=== PATIENT | female | born 2005 | race Caucasian/White ===

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

== ENCOUNTER 2023-01-05 17:40 | Outpatient (CLI) | payer OTHER, SELFPAY ==
[2023-01-05 18:30] LABS: Appearance Urine UA CLOUDY; Bilirubin Urine UA NEGATIVE (NEGATIVE); Color Urine UA YELLOW; Glucose Urine UA NEGATIVE (Negative); Ketones Urine UA NEGATIVE (NEGATIVE); Leukocyte Esterase Urine UA 2+ (NEGATIVE); Nitrite Urine UA NEGATIVE (Negative); Occult Blood Urine UA NEGATIVE (Negative); Protein Urine UA NEGATIVE (Negative); Urobilinogen Urine UA 0.2 E.U./dL (0.2)
[2023-01-05 18:41] LABS: Amorphous Sediment Urine 2+; Bacteria Urine Moderate (10-30); Culture Indicated Urine Specimen Cultured; RBC Urine 0-1/HPF (0-5/HPF); Squamous Epithelial Cell Urine 1-5 /HPF (0-5/HPF); WBC Urine 1-5/HPF (0-5/HPF)
--- NOTE | 2023-01-05 19:09 | P.TNLD_ITS ---
Visit Information Visit Information Date of evaluation: 01/05/23 Primary OB Provider: Hanh Peters On-call OB Provider: Sandra Lipscomb Comments/Additional reasons for admission: 17yo at 28w1d here due to abdominal cramping. Pt reports consistent cramping for several hours. It has not been getting any stronger. No vaginal bleeding, LOF. She is feeling her baby move regularly. [facility] Medical History Acne ADHD Anxiety Depression Eczema Impacted cerumen Polyp of ear Surgical History Anesthesia [place] teeth extracted (~06/2020) Family History Father Acute leukemia Grandfather Heart attack Diabetes mellitus Coagulopathy Grandfather Diabetes mellitus Heart disease Family/Other Diabetes mellitus Family/Other Autism Sister ADHD Social History marital status: unmarried,living together number of children: 0 household members: significant other lives independently: Yes caregiver/support person: No housing: apartment pets and animals: Yes (1 dog, 2 cats. S/O managing litter boxes) education level: high school occupational status: unemployed current occupational exposures/hazards: No special tammy needs: No travel history: over 6 months ago seatbelt use: always water heater temp set < 120 deg: Yes working smoke detector in home: Yes fire extinguisher in home: Yes carbon monox detector in home: Yes firearms in home: No do you feel safe at home: Yes Smoking Status: Never smoker second hand exposure: No alcohol intake: never substance use type: does not use during the past year weight has: remained stable well-balanced diet: rarely or never daily servings fruits/ve-1 caffeine: Yes (1 cup coffee/day) Type(s) of exercise: walking frequency: daily Objective Labs Labs: Laboratory Results - last 24 hr 01/05/23 18:00 Urine Color Yellow Urine Appearance Cloudy Urine pH 7.0 Ur Specific [place] 1.020 Urine Protein Negative Urine Glucose (UA) Negative Urine Ketones Negative Urine Occult Blood Negative Urine Nitrate Negative Urine Bilirubin Negative Urine Urobilinogen 0.2 Ur Leukocyte Esterase 2+ H Urine RBC 0-1/hpf Urine WBC 1-5/hpf Ur Squamous Epith Cells 1-5 /hpf Amorphous Sediment 2+ Urine Bacteria Moderate (10-30) H Ur Culture Indicated? Specimen cultured Evaluation Evaluation Baseline heart rate: 150 Variability: Moderate (11-25) monitor accelerations: Present Monitor Decelerations: Absent Category of Tracing: Reactive Diagnosis, Plan/Disposition Final Diagnosis (1) Abdominal cramping: Status: Acute Plan/Disposition Plan: 17yo at 28w1d here due to abdominal cramping. No contractions on toco, very low suspicion for labor. U/A does have positive LE and bacteria, concerning for UTI. Will start on antibiotics. Stable for d/c home. OB Disposition: home
== END 2023-01-05 19:10 | disposition home or self-care (01) ==
LOC: LABOR 19:08 → OB 01-11 12:19
PROVIDERS: PCP Family Medicine; Referring Provider Family Medicine; Visit Provider Family Medicine
DX: O26.893 Other specified pregnancy related conditions, third trimester (principal); R10.9 Unspecified abdominal pain; Z3A.28 28 weeks gestation of pregnancy
CPT/HCPCS: 59025; 81001; 87086; G0378; G0379

== ENCOUNTER → 2023-01-16 09:35 | Outpatient (CLI) | payer OTHER, SELFPAY ==
[2023-01-16 12:16] LABS: Glucose Fasting Gestational 99 mg/dL (76-95)
[2023-01-16 13:00] LABS: Glucose 2 Hour Gest 170 mg/dL (76-155)
[2023-01-16 14:12] LABS: Glucose 1 Hour Gest 168 mg/dL (76-180)
[2023-01-16 14:46] LABS: Glucose Tol Interp,Gestational INTERPRETATION
[2023-01-16 15:00] LABS: Glucose 3 Hour Gest 142 mg/dL (76-140)
== END ==
PROVIDERS: PCP Family Medicine; Referring Provider Obstetrics & Gynecology; Visit Provider Obstetrics & Gynecology
DX: Z34.81 Encounter for supervision of other normal pregnancy, first trimester (principal); R73.01 Impaired fasting glucose
CPT/HCPCS: 36415; 82951; 82952

== ENCOUNTER 2023-01-25 15:42 | Observation (INO) | payer OTHER, SELFPAY ==
--- NOTE | 2023-01-25 16:26 | DI.US.S_ITS ---
PROCEDURE: US ABDOMEN LIMITED INDICATIONS: RIGHT LOWER QUADRANT PAIN - RULE OUT APPENDICITIS TECHNIQUE: Real-time focused scanning was performed of the abdomen with attention to the appendix, with image documentation. COMPARISON: [facility], US, US OB >= 14 WEEKS FETUS, 01/16/2023, 14:37. FINDINGS: Appendix visualization: Not seen Appendix measurements: Not applicable Associated findings: No secondary signs of appendicitis can be seen. IMPRESSION: No appendix (either normal or abnormal) is identified on this study. No secondary signs of appendicitis can be seen on these images. Dictated by: Gerald Hsieh M.D. on 01/25/2023 at 16:10 Approved by: Gerald Hsieh M.D. on 01/25/2023 at 16:11
[2023-01-25 16:43] LABS: Add Manual Diff / Slide Review NO; Basophils Absolute Auto 100 /uL (0-100); Basophils Percent Auto 0.7 % (0-2); Eosinophils Absolute Auto 100 /uL (0-450); Eosinophils Percent Auto 0.9 % (2-4); Hematocrit 31.2 % (36-46); Hemoglobin 10.2 g/dL (12.0-16.0); Lymphocytes Absolute Auto 1800 /uL (1100-4500); Lymphocytes Percent Auto 14.6 % (25-40); Mean Corpuscular HGB Conc 32.5 % (30-36); Mean Corpuscular Hemoglobin 24.9 PG (26-34); Mean Corpuscular Volume 76.5 fL (80-100); Monocytes Absolute Auto 800 /uL (0-900); Monocytes Percent Auto 6.1 % (3-14); Neutrophils Absolute Auto 9700 /uL (1500-7000); Neutrophils Percent Auto 77.7 % (50-75); Platelet Count 238 X10^3/uL (150-400); Red Blood Cell Count 4.08 X10^6/uL (4.0-5.2); Red Cell Distribution Width 16.2 % (11.6-14.8); White Blood Cell Count 12.5 X10^3/uL (4.5-11.0)
[2023-01-25 16:59] LABS: Appearance Urine UA CLEAR; Bilirubin Urine UA 1+ (NEGATIVE); Color Urine UA YELLOW; Glucose Urine UA NEGATIVE (Negative); Ketones Urine UA 1+ (NEGATIVE); Leukocyte Esterase Urine UA 2+ (NEGATIVE); Nitrite Urine UA NEGATIVE (Negative); Occult Blood Urine UA TRACE-INTACT (Negative); Protein Urine UA 1+ (Negative)
[2023-01-25 17:10] LABS: Bacteria Urine Moderate (10-30); Culture Indicated Urine Specimen Cultured; Ictotest Urine Positive (Negative); RBC Urine 0-1/HPF (0-5/HPF); Squamous Epithelial Cell Urine 1-5 /HPF (0-5/HPF); WBC Urine 10-30/HPF (0-5/HPF)
[2023-01-25] MEDS: OXYCODONE IR 5 MG TABLET PO (17:49)
--- NOTE | 2023-01-25 18:21 | DI.US.S_ITS ---
PROCEDURE: US RENAL COMPLETE INDICATIONS: PAIN RULE OUT KIDNEY STONES TECHNIQUE: Real-time scanning was performed of the kidneys and bladder, with image documentation. COMPARISON: None. FINDINGS: Kidneys: Kidneys are normal in size. Right kidney measures 14.2 cm long; left kidney measures 13.5 cm long. Right renal cortical thickness is 2.5 cm; left renal cortical thickness is 1.8 cm. Renal cortical echotexture is normal. No hydronephrosis or nephrolithiasis. No suspicious solid mass lesions. Bladder: Pre-void bladder volume is 61 mL. Post-void residual is 0 mL. Pre-void images demonstrate no intraluminal masses or stones. On pre-void images, both ureteral jets are noted with color Doppler interrogation. (Of note, ureteral jets may not be detectable in up to 25% of cases due to insufficient differences in specific gravity between ureteral and bladder urine). Miscellaneous: No free pelvic fluid. IMPRESSION: No nephrolithiasis or hydronephrosis. Dictated by: Pito Tinoco M.D. on 01/25/2023 at 19:18 Approved by: Pito Tinoco M.D. on 01/25/2023 at 19:18
[2023-01-25] MEDS: NIFEdipine 10 MG CAPSULE PO ×4 (18:25→19:25)
== END 2023-01-25 19:36 | disposition home or self-care (01) ==
PROVIDERS: Admitting Provider Obstetrics & Gynecology; PCP Family Medicine; Referring Provider Obstetrics & Gynecology; Visit Provider Obstetrics & Gynecology
DX: R10.9 Unspecified abdominal pain (principal); O13.3 Gestational [pregnancy-induced] hypertension without significant proteinuria, third trimester
CPT/HCPCS: 59025; 59050; 76705; 76770; 81001; 85025; 87086; G0378; G0379